=== PATIENT | male | born 1980 ===

== ENCOUNTER 2018-01-02 16:05 | Emergency (ER) | payer BC, OTHER ==
--- NOTE | 2018-01-02 17:48 | UC ---
Ear Complaint HPI - HPI Summary HPI Summary: 37 yo male presents with RIGHT ear pain for the last 2-3 days that is increasing in discomfort and has had decreased hearing. Over the last day or two has also had sinus congestion. Has not taken anything OTC. Denies fever, chills, sore throat, or cough. - History of Current Complaint Chief Complaint: UCGeneralIllness Stated Complaint: EAR PAIN Time Seen by Provider: 01/02/18 17:48 Severity Initially: Mild Severity Currently: Mild Pain Intensity: 4 Pain Scale Used: 0-10 Numeric - Allergies/Home Medications Allergies/Adverse Reactions: Allergies Allergy/AdvReac Type Severity Reaction Status Date / Time No Known Allergies Allergy Verified 01/02/18 17:09 PMH/Surg Hx/FS Hx/Imm Hx - Additional Past Medical History Additional PMH: None - Surgical History Surgical History: None - Family History Known Family History: Positive: Hypertension, Diabetes, Other - ETOH, CVA - Social History Occupation: Employed Full-time Lives: With Family Alcohol Use: Occasionally Substance Use Type: None Smoking Status (MU): Former Smoker Review of Systems Constitutional: Negative Skin: Negative Eyes: Negative ENT: Ear Ache, Sinus Congestion Respiratory: Negative Cardiovascular: Negative Gastrointestinal: Negative Neurovascular: Negative Neurological: Negative Psychological: Negative All Other Systems Reviewed And Are Negative: Yes Physical Exam - Summary Physical Exam Summary: GENERAL: NAD. WDWN. No pain distress. SKIN: No rashes, sores, lesions, or open wounds. HEENT: Head: AT/NC Eyes: EOM intact. Conjunctiva clear without inflammation or discharge. Ears: Hearing grossly normal. RIGHT ear: TM with moderate erythema and bulging. No canal edema or drainage. Nose: Nasal mucosa pink and moist. NTTP maxillary and frontal sinus. Throat: Posterior oropharynx without exudates, erythema, or tonsillar enlargement. Uvula midline. NECK: Supple. Nontender. No lymphadenopathy. CHEST: CTAB. No r/r/w. No accessory muscle use. Breathing comfortably and in no distress. CV: RRR. Without m/r/g. Pulses intact. NEURO: Alert. PSYCH: Age appropriate behavior. Triage Information Reviewed: Yes Vital Signs: Initial Vital Signs Temp 98.0 F 01/02/18 17:05 Pulse 88 01/02/18 17:05 Resp 16 01/02/18 17:05 BP 139/84 01/02/18 17:05 Pulse Ox 100 01/02/18 17:05 Vital Signs Reviewed: Yes Ear Complaint Course/Dx - Course Course Of Treatment: Right otitis media - Differential Dx/Diagnosis Provider Diagnoses: Otitis media Discharge - Sign-Out/Discharge Documenting (check all that apply): Patient Departure All imaging exams completed and their final reports reviewed: No Studies - Discharge Plan Condition: Stable Disposition: HOME Prescriptions: Amoxicillin/Clavulanate TAB* [Augmentin TAB 875*] 875 mg PO BID #20 tab Patient Education Materials: Ear Infection (ED) Referrals: No Primary Care Phys,NOPCP [Primary Care Provider] - Additional Instructions: If you develop a fever, shortness of breath, chest pain, new or worsening symptoms - please call your PCP or go to the ED. Your blood pressure was high at todays visit. Please see your primary provider within 4 weeks for recheck and re-evaluation. - Billing Disposition and Condition Condition: STABLE Disposition: Home - Attestation Statements Provider Attestation: I was available for consult. This patient was seen by the [facility]NER. The patient was not presented to, seen by, or examined by me. -Margi
== END 2018-01-02 17:58 | disposition home or self-care (01) ==
LOC: UCEAST 16:05
CPT/HCPCS: 99212; G0463